=== PATIENT | female | born 1990 | race African-American/Black ===

== ENCOUNTER → 2017-01-31 | Outpatient (CLI) | payer MEDICAID ==
[2017-01-31 20:46] LABS: MEAN CORPUSCULAR HEMOGLOBIN 32.3 pg (27.0-33.0); MEAN CORPUSCULAR HGB CONC 35.1 g/dl (32.0-36.5); MEAN CORPUSCULAR VOLUME 91.9 fl (80.0-96.0); PLATELET COUNT, AUTOMATED 224 k/mm3 (150-450); RED CELL DISTRIBUTION WIDTH 12.3 % (11.5-14.5); WHITE BLOOD COUNT 11.5 K/mm3 (4.0-10.0)
[2017-02-01 11:12] LABS: HBsAg Prenatal NEGATIVE (NEGATIVE)
[2017-02-01 12:54] LABS: CONTROL LINE INT CTR LINE PRESENT; HIV SCRN NEGATIVE (NEGATIVE); HIV SCRN1 NEGATIVE (NEGATIVE)
== END ==
LOC: M LRY 14:37
PROVIDERS: ATTEND Obstetrics & Gynecology
DX: Z36 Encounter for antenatal screening of mother (principal); Z3A.00 Weeks of gestation of pregnancy not specified

== ENCOUNTER → 2017-02-06 | Outpatient (CLI) | payer MEDICAID ==
[2017-02-06 13:40] LABS: FREE T4 0.93 NG/DL (0.76-1.46)
== END ==
LOC: M SMT 09:42
PROVIDERS: ATTEND Obstetrics & Gynecology
DX: Z36 Encounter for antenatal screening of mother (principal); Z3A.00 Weeks of gestation of pregnancy not specified

== ENCOUNTER → 2017-02-15 | Outpatient (REF) | LOC: M LAB 15:16 | PROVIDERS: ATTEND Nurse Practitioner Adult Health | DX: Z00.00 Encounter for general adult medical examination without abnormal findings (principal) ==

== ENCOUNTER → 2017-03-10 | Outpatient (CLI) | payer MEDICAID ==
[2017-03-10 14:00] LABS: FREE T4 1.06 NG/DL (0.76-1.46)
== END ==
LOC: M SMT 09:45
PROVIDERS: ATTEND Advanced Practice Midwife
DX: Z36 Encounter for antenatal screening of mother (principal); Z3A.00 Weeks of gestation of pregnancy not specified

== ENCOUNTER → 2017-03-13 | Outpatient (CLI) | payer MEDICAID, OTHER ==
--- NOTE | 2017-03-14 04:21 | REP ---
Clinical: Anatomical evaluation. Comparison: none. Findings: Examination demonstrates a single live intrauterine in breech presentation. motion is identified by technologist. Placenta is noted anteriorly and grade 0 without evidence for placenta previa or abruption. Amniotic fluid volume is normal. Cervix measures 4.8 cm in length and appears closed. No evidence for nuchal cord. Gestational age by LMP 18 weeks 2 days with DOUG 08/12/2017 . Gestational age by current measurements 18 weeks 3 days with DOUG 08/11/2017 . FHR equals 160 beats per minute. BPD 4.1 cm 18 weeks 3 days HC 15.3 cm 18 weeks 2 days AC 13.0 cm 18 weeks 4 days FL 2.7 cm 18 weeks 3 days HL 2.7 cm 18 weeks 5 days HC/AC ratio 1.18 Estimated weight 240 grams ( 52nd percentile). Anatomical assessment demonstrates normal structures including cranium, choroid plexus, cavum, cerebellum/posterior fossa, facial features, lungs, diaphragm, stomach, cord insertion/three-vessel cord, kidneys/bladder, and upper extremities. Impression: 1. Single live intrauterine in breech presentation demonstrating appropriate interval growth. 2. Limited evaluation of the heart/ventricular outflow tracts, spine and lower extremities may warrant reevaluation and follow-up. Signed by Troy Louise MD 03/14/2017 04:12 A
== END ==
LOC: M RAD 14:52
PROVIDERS: ATTEND Obstetrics & Gynecology
DX: Z36 Encounter for antenatal screening of mother (principal); Z3A.18 18 weeks gestation of pregnancy

== ENCOUNTER 2017-03-27 17:24 | Outpatient (CLI) | payer OTHER ==
[~2017-03-27] VITALS: Ht 167.6 cm; Wt 67.0 kg
[2017-03-27 17:41] VITALS: BP 134/70
[2017-03-27] MEDS ORDERED: PRENTAB9 PO (17:52)
[2017-03-27] MEDS ORDERED: LEVO50TA5 PO (17:52)
[2017-03-27] MEDS ORDERED: ESGI1CAP PO (17:52)
== END 2017-03-27 18:25 | disposition home or self-care (01) ==
LOC: M LDO 17:24
PROVIDERS: ATTEND Advanced Practice Midwife
DX: O26.892 Other specified pregnancy related conditions, second trimester (principal); Z3A.20 20 weeks gestation of pregnancy

== ENCOUNTER → 2017-04-14 | Outpatient (CLI) | payer OTHER ==
[~2017-04-14] MED LIST: ESGI1CAP PO; LEVO50TA5 PO; PRENTAB9 PO
--- NOTE | 2017-04-14 12:52 | REP ---
REASON: anatomy followup. COMPARISON: 03/13/2017 Multiple ultrasonographic images of the gravid uterus show a single living intrauterine gestation in the kim breech presentation. Doppler interrogation of the heart shows the heart rate of 150 beats per minute. The placenta is anterior and not low lying. The subjective amniotic fluid volume is within normal limits. The cervix measures 4 cm in length and is closed. Evaluation of the maternal adnexal spaces showed no abnormalities. BPD 5.5 cm = 22 weeks 6 days HC 21.3 cm = 23 weeks 2 days AC 19.2 cm = 23 weeks 6 days FL 4.0 cm = 22 weeks 5 days The estimated weight is 585 grams, which is at the 59th percentile for a 22-week 6-day gestational age. The four-chamber heart was documented today as was the right ventricular outflow tract and the spine. The choroid plexus was again seen suboptimally. IMPRESSION: Single living intrauterine gestation as described above with an estimated gestational age of 23 weeks 1 day via composite criteria with an estimated date of delivery of 08/10/2017. No anomalies were detected. Although the choroid plexus was not well seen today, it was previously seen to be normal. Signed by Tony Cotto DO 04/14/2017 03:22 P
== END ==
LOC: M RAD 10:24
PROVIDERS: ATTEND Advanced Practice Midwife
DX: Z36 Encounter for antenatal screening of mother (principal); Z3A.22 22 weeks gestation of pregnancy

== ENCOUNTER → 2017-05-11 | Outpatient (CLI) | payer OTHER ==
[2017-05-11 13:29] LABS: BASO % 0.3 % (0.0-1.0); EOS % 0.4 % (0.0-3.0); LARGE UNSTAINED CELL # 0.1 K/mm3 (0.0-0.4); LYMPH # 1.5 K/mm3 (1.5-6.5); LYMPH % 13.2 % (24.0-44.0); MEAN CORPUSCULAR HEMOGLOBIN 32.4 pg (27.0-33.0); MEAN CORPUSCULAR HGB CONC 34.2 g/dl (32.0-36.5); MEAN CORPUSCULAR VOLUME 94.6 fl (80.0-96.0); MONO # 0.6 K/mm3 (0.0-0.8); MONO % 5.2 % (0.0-5.0); NEUTROPHILS # 8.7 K/mm3 (1.8-7.7); NEUTROPHILS % 79.8 % (36.0-66.0); PLATELET COUNT, AUTOMATED 178 k/mm3 (150-450); WHITE BLOOD COUNT 10.9 K/mm3 (4.0-10.0)
[2017-05-11 14:53] LABS: THYROXINE (T4) 14.7 UG/DL (4.5-12.0)
== END ==
LOC: M SMT 08:58
PROVIDERS: ATTEND Advanced Practice Midwife
DX: Z36 Encounter for antenatal screening of mother (principal); Z3A.00 Weeks of gestation of pregnancy not specified